=== PATIENT | female | born 1945 | race Caucasian/White ===

== ENCOUNTER → 2017-04-05 | Outpatient (CLI) | payer MEDICARE, BC ==
[~2017-04-05] MED LIST: FOSA70TA PO; GABA400C5 PO; LEVO125T4 PO; LISI10TA3 PO; METO25TA3 PO; XARE15TA PO
[2017-04-05 11:00] LABS: AUTOMATED NEUTROPHIL # 5.4 TH/MM3 (1.8-7.7); BASOPHIL % 0.6 % (0.0-2.0); EOSINOPHIL # 0.6 TH/MM3 (0-0.4); EOSINOPHIL % 6.9 % (0.0-4.0); HEMATOCRIT 47.4 % (35.0-46.0); HEMO FLAGS DIFF FINAL; LYMPHOCYTE # 1.6 TH/MM3 (1.0-4.8); MEAN CELL VOLUME 91.6 FL (80.0-100.0); MEAN CORPUSCULAR HGB CONC 31.7 % (32.0-36.0); MONO % 5.3 % (0.0-8.0); NEUT % 67.2 % (16.0-70.0); PLATELET COUNT 349 TH/MM3 (150-450); RED BLOOD COUNT 5.17 MIL/MM3 (4.00-5.30); RED CELL DISTRIBUTION WIDTH 12.4 % (11.6-17.2)
[2017-04-05 13:01] LABS: ALT (GPT) 24 U/L (10-53); ANION GAP 7 MEQ/L (5-15); AST (GOT) 21 U/L (15-37); BICARBONATE 25.4 MEQ/L (21.0-32.0); BLOOD UREA NITROGEN 19 MG/DL (7-18); CHLORIDE 106 MEQ/L (98-107); GLOMERULAR FILTRATION RATE 60 ML/MIN (>89); GLUCOSE,FASTING 97 MG/DL (74-99); POTASSIUM 4.8 MEQ/L (3.5-5.1); SODIUM (NA) 138 MEQ/L (136-145)
[2017-04-05 13:03] LABS: ALKALINE PHOSPHATASE 126 U/L (45-117); TOTAL BILIRUBIN ADULT 0.4 MG/DL (0.2-1.0)
== END ==
LOC: OLAB 10:38
PROVIDERS: ATTEND Physical Medicine & Rehabilitation
DX: R42 Dizziness and giddiness (principal)
CPT/HCPCS: 36415; 80053; 85025

== ENCOUNTER → 2018-01-08 | Day surgery (SDC) | payer MEDICARE, BC ==
[~2018-01-08] MED LIST changes: +ACETAMINOPHEN 1000 MG/100 ML 100 ML IV ONE; +BUPIVACAINE/EPINEPHRINE 0.25% 50 ML VIAL ONE; +LACTATED RINGER'S 1000 ML INJ 1,000 ML ONE; +LIDOCAINE 1%/EPINEPHrine 1:100,000 SOLN 30 ML VIAL ONE; +MIDAZOLAM HCL 2 MG/2 ML VIAL ONE; +ONDANSETRON HCL 4 MG/2 ML VIAL IV PUSH ONE; +PROPOFOL 200 MG/20 ML AMP IV ONE; +SODIUM CHLOR 0.9% 250 ML INJ 250 ML IV ONE; +VANCOMYCIN HCL 1000 MG VIAL ONE; +ceFAZolin INJ 1,000 MG VIAL ONE
--- NOTE | 2018-01-08 21:10 | MP ---
cc: Darrell Daislva MD, Richard MD DATE OF OPERATION: 01/08/2018 PROCEDURE: Reexcision right chest wall carcinoma. 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 ANESTHESIA: LMA. SURGEON: Darrell Dasilva MD ESTIMATED BLOOD LOSS: 10 mL FLUIDS: 650 mL crystalloid. COMPLICATIONS: None. DRAINS: None. SPECIMEN: A 4 x 10 cm specimen to pathology. PROCEDURE IN DETAIL: Right chest area was marked by the undersigned and confirmed by the patient in the holding area. She was taken to the operating room and placed on the operating table in the supine position. After laryngeal mask anesthesia was instituted the right chest was prepped and draped in the usual fashion. Timeout was taken confirming the correct patient, site, and procedure to be performed. Skin and subcutaneous tissue was infiltrated with local anesthetic and an elliptical incision was made around the patient's previous incision with extra generous tissue taken inferiorly where her previous positive margin was located. Dissection was then carried down with electrocautery to the chest wall and the specimen completely excised. The specimen was oriented with silk sutures and passed off the table. The wound was made hemostatic and the wound then closed in 2 layers with interrupted 3-0 Vicryl suture and 5-0 PDS in a running subcuticular fashion. The wound was dressed with Steri-Strips, and the patient was taken back to the recovery room in stable condition. She tolerated the procedure well. Darrell Dasilva MD MAF/rt , 08:14 PM , 09:09 PM
== END | disposition home or self-care (01) ==
LOC: ESDC 10:13
PROVIDERS: ATTEND Surgery Trauma Surgery
DX: C76.1 Malignant neoplasm of thorax (principal)
CPT/HCPCS: 00400; 21555; 88305; J0131; J0690; J2250; J2405; J3010; J3370; J7050; J7120